=== PATIENT | male | born 2000 | race Two or more races ===

== ENCOUNTER 2021-09-13 21:31 | Emergency (ER) | payer OTHER ==
[~2021-09-13] VITALS: Ht 175.3 cm; Wt 73.5 kg
[2021-09-13] MEDS ORDERED: ORPHENADRINE C100 MG PO (23:30)
[2021-09-13] MEDS ORDERED: KETO10TA2 PO (23:30)
== END 2021-09-13 23:37 | disposition home or self-care (01) ==
LOC: ER 21:31
DX: M62.830 Muscle spasm of back (principal); M54.9 Dorsalgia, unspecified